=== PATIENT | male | born 2000 | race Caucasian/White ===

== ENCOUNTER 2024-03-28 11:04 | Emergency (ER) | payer OTHER ==
[~2024-03-28] VITALS: Ht 182.9 cm; Wt 79.5 kg
[2024-03-28 11:15] VITALS: TEMP 98.2
[2024-03-28] MEDS ORDERED: Acetaminophen 500 MG TAB PO ONE (11:45)
[2024-03-28] MEDS ORDERED: Ibuprofen 400 MG TAB PO ONE (11:45)
[2024-03-28] MEDS ORDERED: CEPHALEXIN500 M1 PO (13:33)
[2024-03-28 13:42] VITALS: BP 115/89; PULSE 82
== END 2024-03-28 13:42 | disposition home or self-care (01) ==
LOC: EDSEX 11:04 → COL.ER 11:04
DX: S81.812A Laceration without foreign body, left lower leg, initial encounter (principal); S99.921A Unspecified injury of right foot, initial encounter; W18.30XA Fall on same level, unspecified, initial encounter; W22.8XXA Striking against or struck by other objects, initial encounter